=== PATIENT | female | born 1945 | race Caucasian/White ===

== ENCOUNTER 2017-08-21 21:52 | Emergency (ER) | payer MEDICARE ==
--- NOTE | 2017-08-21 22:36 | RAD ---
PORTABLE AP CHEST X-RAY: 08/21/17 HISTORY: Fever and chills. COMPARISON: 10/31/12 as well as study on 03/17/08. The cardiac silhouette and pulmonary vasculature are within normal limits. There is a stable increas ed density nodule overlying the right upper lobe unchanged in size or appearance compared to the [place] or studies dating back to 2007 suggesting a benign finding. The lungs are otherwise clear. Vascular calcifications are seen in the thoracic aorta. No other interval change. IMPRESSION: 1. No acute cardiopulmonary process. 2. Stable increased density nodule right upper lobe which is unchanged in size or appearance co mpared to study in 2007 suggesting benign finding. POS: [facility]
[2017-08-21 23:12] LABS: ALT (SGPT) 26 U/L (8-55); AST (SGOT) 35 U/L (5-34); Albumin 3.7 g/dL (3.4-4.8); Alkaline Phosphatase 137 U/L (40-150); Anion Gap 15 mmol/L (10-20); BUN (Urea Nitrogen) 20 mg/dL (9.8-20.1); Bilirubin, Total 1.6 mg/dL (0.2-1.2); Calc. Creatinine Clearance 0 mL/min (70-130); Calcium 10.2 mg/dL (7.8-10.44); Carbon Dioxide 20 mmol/L (23-31); Chloride 104 mmol/L (98-107); Estimated GFR-MDRD 35; Globulin 3.5 g/dL (2.4-3.5); Glucose 156 mg/dL (83-110); Potassium 3.8 mmol/L (3.5-5.1); Protein, Total 7.2 g/dL (6.0-8.3); Sodium 135 mmol/L (136-145)
[2017-08-21 23:20] LABS: Hemoglobin 11.8 g/dL (12.0-16.0); Mean Corpuscular HGB CONC 31.9 g/dL (32.0-36.0); Mean Corpuscular Hemoglobin 27.8 pg (27.0-31.0); Mean Corpuscular Volume 87.1 fl (81.0-99.0); Platelet Count 162 thou/uL (130-400); RBC Distribution Width 13.4 % (11.5-14.5); Red Blood Cell (RBC) Count 4.19 mill/uL (4.20-5.40); White Blood Cell (WBC) Count 10.1 thou/uL (4.8-10.8)
[2017-08-21 23:21] LABS: Bilirubin Negative (Negative); Blood, Urine Small (Negative); Clarity Hazy (Clear); Glucose, Urine (Dipstick) Negative (Negative); Leukocyte Negative (Negative); Nitrite Negative (Negative); Protein, Urine (Dipstick) 100 mg/dL (Neg-Trace); Urobilinogen 0.2 mg/dL (0.2-1.0); pH, Urine 5.5 (5.0-9.0)
[2017-08-21 23:22] LABS: Bacteria/HPF 1+ HPF (None Seen); Band 10 % (5-11); Transitional Epithelial 0-3 HPF (0-3)
[2017-08-21 23:23] LABS: Lymphocytes 7 % (21-51); Monocytes 3 % (0-10); Neutrophil 80 % (42-75)
[2017-08-21] MEDS ORDERED: Sulfameth/Trimethoprim DS 800-160mg TAB ONE (23:51)
== END 2017-08-21 23:55 | disposition home or self-care (01) ==
LOC: MADERS 21:52
DX: N39.0 Urinary tract infection, site not specified (principal); I10 Essential (primary) hypertension; Z79.899 Other long term (current) drug therapy
CPT/HCPCS: 36415; 71020; 80053; 81001; 85025; 87040; 87077; 87081; 87086; 87149; 87186; 87430